=== PATIENT | male | born 1995 | race Two or more races ===

== ENCOUNTER 2021-01-22 20:27 | Emergency (ER) | payer OTHER ==
[~2021-01-22] VITALS: Ht 165.1 cm; Wt 84.8 kg
== END 2021-01-22 23:44 | disposition home or self-care (01) ==
LOC: ER 20:27
DX: S80.02XA Contusion of left knee, initial encounter (principal); M25.562 Pain in left knee; W18.09XA Striking against other object with subsequent fall, initial encounter; Y93.67 Activity, basketball; Y92.89 Other specified places as the place of occurrence of the external cause; Y99.8 Other external cause status